=== PATIENT | male | born 1950 | race Caucasian/White ===

== ENCOUNTER 2017-07-31 06:44 | Emergency (ER) | payer OTHER, MEDICAID, MEDICARE ==
[2017-07-31] MEDS: DIPHENHYDRAMINE 50 MG INJ IV (07:17)
[2017-07-31 07:42] LABS: ADD MAN DIFF? NO
[2017-07-31 07:49] LABS: BASOPHILS % 0.1 % (0.0-2.0); EOSINOPHILS # 0.1 10^3/ul (0.0-0.5); EOSINOPHILS % 0.6 % (0.0-7.0); HEMOGLOBIN 16.2 g/dl (14.0-18.0); LYMPHOCYTES # 0.8 10^3/ul (0.8-2.9); LYMPHOCYTES % 5.9 % (15.0-51.0); MEAN CORPUSCULAR HEMOGLOBIN 32.9 pg (29.0-33.0); MEAN CORPUSCULAR HGB CONC 34.5 g/dl (32.0-37.0); MEAN CORPUSCULAR VOLUME 95.5 fl (82.0-101.0); MEAN PLATELET VOLUME 10.3 fl (7.4-10.4); MONOCYTE # 0.3 10^3/ul (0.3-0.9); MONOCYTES % 1.9 % (0.0-11.0); NEUTROPHIL # 12.7 10^3/ul (1.6-7.5); NEUTROPHILS % 91.1 % (39.0-77.0); PLATELET COUNT 180 10^3/UL (140-415); RED BLOOD COUNT 4.92 10^6/ul (4.70-6.10); RED CELL DISTRIBUTION WIDTH 13.3 % (11.5-14.5)
[2017-07-31 07:49] LABS: WHITE BLOOD COUNT 13.9 10^3/ul (4.8-10.8)
[2017-07-31 08:20] LABS: ALANINE AMINOTRANSFERASE 33 IU/L (13-69); ALBUMIN 3.8 g/dl (3.3-4.9); ALBUMIN/GLOBULIN RATIO 1.35; ALKALINE PHOSPHATASE 87 IU/L (42-121); ANION GAP 14 (8-16); ASPARTATE AMINO TRANSFERASE 24 IU/L (15-46); BILIRUBIN,INDIRECT 1.7 mg/dl (0-1.1); BILIRUBIN,TOTAL 1.7 mg/dl (0.2-1.3); BLOOD UREA NITROGEN 19 mg/dl (7-20); CALCIUM 8.6 mg/dl (8.4-10.2); CARBON DIOXIDE 28 mmol/L (21-31); CHLORIDE 102 mmol/L (97-110); CREATININE 0.91 mg/dl (0.61-1.24); GLUCOSE 241 mg/dl (70-220); LIPASE 24 U/L (23-300); POTASSIUM 3.8 mmol/L (3.5-5.1); SODIUM 140 mmol/L (135-144); TOTAL PROTEIN 6.6 g/dl (6.1-8.1)
[2017-07-31] MEDS: DEXAMETHASONE 10 MG/ML 1 ML INJ IV (08:43)
== END 2017-07-31 09:10 | disposition home or self-care (01) ==
LOC: FTE 06:44
DX: R73.9 Hyperglycemia, unspecified (principal); L29.9 Pruritus, unspecified; I10 Essential (primary) hypertension
CPT/HCPCS: 36415; 80053; 83690; 85025; 96374; 96375; 99284-25

== ENCOUNTER 2017-08-01 21:35 | Emergency (ER) | payer OTHER, MEDICARE ==
[2017-08-01] MEDS: SOD CHLORIDE 0.9% 1,000 ML IV (22:20)
[2017-08-01] MEDS: DIPHENHYDRAMINE 50 MG INJ IV (22:20)
[2017-08-01] MEDS: METHYLPREDNISOLONE 125 MG INJ IV (22:20)
[2017-08-01 22:37] LABS: ADD MAN DIFF? NO
[2017-08-01 22:40] LABS: BASOPHILS % 0.1 % (0.0-2.0); EOSINOPHILS % 0.1 % (0.0-7.0); HEMOGLOBIN 15.2 g/dl (14.0-18.0); LYMPHOCYTES # 1.1 10^3/ul (0.8-2.9); LYMPHOCYTES % 6.7 % (15.0-51.0); MEAN CORPUSCULAR HGB CONC 34.5 g/dl (32.0-37.0); MEAN CORPUSCULAR VOLUME 95.4 fl (82.0-101.0); MEAN PLATELET VOLUME 10.2 fl (7.4-10.4); MONOCYTE # 0.2 10^3/ul (0.3-0.9); MONOCYTES % 1.3 % (0.0-11.0); NEUTROPHIL # 14.8 10^3/ul (1.6-7.5); NEUTROPHILS % 91.4 % (39.0-77.0); PLATELET COUNT 180 10^3/UL (140-415); RED BLOOD COUNT 4.61 10^6/ul (4.70-6.10); RED CELL DISTRIBUTION WIDTH 13.3 % (11.5-14.5)
[2017-08-01 22:40] LABS: WHITE BLOOD COUNT 16.2 10^3/ul (4.8-10.8)
[2017-08-01 22:58] LABS: ANION GAP 15 (8-16); BLOOD UREA NITROGEN 15 mg/dl (7-20); CALCIUM 8.9 mg/dl (8.4-10.2); CARBON DIOXIDE 29 mmol/L (21-31); CHLORIDE 101 mmol/L (97-110); CREATININE 0.72 mg/dl (0.61-1.24); GLUCOSE 160 mg/dl (70-220); POTASSIUM 4.1 mmol/L (3.5-5.1); SODIUM 141 mmol/L (135-144)
[2017-08-01 23:12] LABS: TROPONIN-I < 0.012 ng/ml (0.000-0.120)
[2017-08-02] MEDS: hydrOXYzine HCL 25 MG TAB PO (00:14)
[2017-08-02] MEDS: FAMOTIDINE 20 MG INJ IV (00:14)
[2017-08-02] MEDS: HYDROCORTISONE 1% 28 GM CR TOP (00:15)
== END 2017-08-02 00:35 | disposition home or self-care (01) ==
LOC: FTE 08-02 00:35
DX: L50.9 Urticaria, unspecified (principal); I10 Essential (primary) hypertension; Z87.891 Personal history of nicotine dependence
CPT/HCPCS: 80048; 84484; 85025; 96374; 96375; 99284-25

== ENCOUNTER 2017-09-19 06:06 | Emergency (ER) | payer OTHER | END 2017-09-19 08:31 | disposition home or self-care (01) | LOC: E/R 06:06 | DX: G89.18 Other acute postprocedural pain (principal); R40.2142 Coma scale, eyes open, spontaneous, at arrival to emergency department; R40.2252 Coma scale, best verbal response, oriented, at arrival to emergency department; R40.2362 Coma scale, best motor response, obeys commands, at arrival to emergency department; I10 Essential (primary) hypertension; Z87.891 Personal history of nicotine dependence | CPT/HCPCS: 99283 ==